=== PATIENT | male | born 1955 | race Caucasian/White ===

== ENCOUNTER 2017-11-05 05:25 | Inpatient (IN) | payer BC, OTHER ==
[2017-10-16 12:05] VITALS: BMI 43.0
--- NOTE | 2017-10-16 12:32 | PAT Medication Instructions ---
Service Date Oct 16, 2017. Current Home Medication List Acetaminophen W/ Codeine (Tylenol W/Codeine #3), 2 TAB PO UD PRN for Pain Aspirin (Aspirin Ec), 81 MG PO QAM Cetirizine (Zyrtec), 10 MG PO QAM Cholestyramine (Cholestyramine Light), 1 DOSE PO TID Finasteride (Proscar), 5 MG PO HS Furosemide (Lasix), 20 MG PO QAM Ibuprofen (Motrin), 2 TAB PO UD PRN for Pain Losartan Potassium (Losartan Potassium), 100 MG PO QAM Metoprolol Succ (Toprol Xl) (Toprol-Xl), 50 MG PO QAM Multivitamin (Multivitamin), 1 TAB PO QAM Nitroglycerin (Nitrostat), 0.4 MG UT PRN Omeprazole (Prilosec), 20 MG PO QAM Pyridoxine (Vitamin B6), 200 MG PO QAM Ranitidine (Zantac), 300 MG PO HS Rosuvastatin Calcium (Crestor), 40 MG PO HS Saw [place]-Zinc (Gnp [place] Extract), 1 CAP PO QAM Tamsulosin HCl (Tamsulosin HCl), 1 CAP PO HS [Tonja's Leg Cramps ], Unknown Dose PO HS Medication Instructions For Your Scheduled Surgery - Hold the following medications 2 weeks prior to surgery: [Tonja's Leg Cramps ], Unknown Dose PO HS [place]-Zinc (Gnp [place] Extract), 1 CAP PO QAM - Check with surgeon for instructions: Ibuprofen (Motrin), 2 TAB PO UD PRN for Pain - Hold the following medications 24 hours prior to surgery: Cholestyramine (Cholestyramine Light), 1 DOSE PO TID - Hold the following medications the morning of surgery: Cetirizine (Zyrtec), 10 MG PO QAM Furosemide (Lasix), 20 MG PO QAM Losartan Potassium (Losartan Potassium), 100 MG PO QAM Multivitamin (Multivitamin), 1 TAB PO QAM Pyridoxine (Vitamin B6), 200 MG PO QAM - Take the following medications the morning of surgery with a sip of water: Nitroglycerin (Nitrostat), 0.4 MG UT PRN (if needed) Omeprazole (Prilosec), 20 MG PO QAM Metoprolol Succ (Toprol Xl) (Toprol-Xl), 50 MG PO QAM Aspirin (Aspirin Ec), 81 MG PO QAM Acetaminophen W/ Codeine (Tylenol W/Codeine #3), 2 TAB PO UD PRN for Pain (okay to take up to 4 hours prior to surgery if needed) - Take the following medications as scheduled the night before surgery: Acetaminophen W/ Codeine (Tylenol W/Codeine #3), 2 TAB PO UD PRN for Pain (if needed) Tamsulosin HCl (Tamsulosin HCl), 1 CAP PO HS Ranitidine (Zantac), 300 MG PO HS Nitroglycerin (Nitrostat), 0.4 MG UT PRN (if needed) Rosuvastatin Calcium (Crestor), 40 MG PO HS Finasteride (Proscar), 5 MG PO HS If you have any questions please call us at [phone] or [phone] or [phone]
--- NOTE | 2017-10-16 13:43 | DIAGNOSTIC IMAGING REPORT ---
CHEST 2 VIEWS ROUTINE CLINICAL HISTORY: Preoperative evaluation. COMPARISON STUDY: Chest radiograph October 20, 2013. FINDINGS: Lung volumes are normal. There is no pneumothorax or pleural effusion. Pulmonary vascularity is normal. There is no consolidation. There is mild cardiomegaly. Postoperative findings within the left shoulder are noted. IMPRESSION: 1. No acute cardiopulmonary findings. 2. Mild cardiomegaly. Electronically signed by: Dion Blancas M.D. 10/16/2017 1:42 PM Dictated Date/Time: 10/16/2017 1:40 PM
[2017-10-16 14:46] LABS: BASO % 0.5 %; BASO ABS # 0.02 K/uL (0-0.2); EOS % 1.4 %; EOS ABS # 0.06 K/uL (0-0.5); HEMATOCRIT 39.1 % (42-52); HEMOGLOBIN 13.4 g/dL (14.0-18.0); IG# 0.01 K/uL (0.00-0.02); LYMPH % 39.1 %; LYMPH ABS # 1.69 K/uL (1.2-3.4); MEAN CELL VOLUME 89.3 fL (80-100); MEAN CORPUSCULAR HEMOGLOBIN 30.6 pg (25-34); MEAN CORPUSCULAR HGB CONC 34.3 g/dl (32-36); MEAN PLATELET VOLUME 10.4 fL (7.4-10.4); MONO % 11.6 %; NEUT % 47.2 %; NEUT ABS # 2.04 K/uL (1.4-6.5); PLATELET COUNT 160 K/uL (130-400); RED CELL DISTRIBUTION WIDTH CV 13.6 % (11.5-14.5); RED CELL DISTRIBUTION WIDTH SD 44.6 fL (36.4-46.3); WHITE BLOOD COUNT 4.32 K/uL (4.8-10.8)
[2017-10-16 16:11] LABS: CALCIUM 9.4 mg/dl (8.5-10.1); CREATININE 1.18 mg/dl (0.60-1.40); POTASSIUM 4.9 mmol/L (3.5-5.1)
[~2017-11-05] VITALS: Ht 172.7 cm; Wt 129.4 kg
[2017-11-05] VITALS (8 sets, daily range): BP systolic 99–134; BP diastolic 63–84; PULSE 56–74; TEMP 36.4–37.2; O2SAT 61–99; Ht 172.7 cm; Wt 129.4 kg
[~2017-11-05 05:25] MED LIST: ACET-1101 PO; ASPI81TA28 PO; CETI10TA84 PO; CZR50 PO; FINA5TAB PO; FLM4 PO; FURO-85 PO; HYLAND'S LEG CRAMPS PO; IBUP600T44 PO; METO50TA8 PO; MULT-506 PO; NTRGSL/4 UT; PRLSR20 PO; PYRI100T4 PO; QSTP PO; RANI300T2 PO; ROSU40TA PO; [UNRECOGNIZED DRUG - CODE] PO
[2017-11-05] MEDS ORDERED: CeleBREX 200 MG CAP PO SCH (06:00)
[2017-11-05] MEDS ORDERED: LACTATED RINGER'S 1000ML 1,000 ML IV SCH (06:00)
[2017-11-05] MEDS ORDERED: CEFAZOLIN 2000MG IV PUSH 15 ML IV SCH (06:00)
[2017-11-05] MEDS ORDERED: GABAPENTIN 600 MG PO SCH (06:00)
[2017-11-05] MEDS ORDERED: ACETAMINOPHEN 500 MG TAB PO SCH (06:00)
[2017-11-05] MEDS ORDERED: MIDAZOLAM HCL 1 MG/ML 2ML VIAL ONE (06:46)
[2017-11-05] MEDS ORDERED: FENTANYL CITRATE INJ 50 MCG/1 ML 2 ML VIAL ONE ×6 (06:46→11:25)
[2017-11-05] MEDS ORDERED: BACITRACIN 50000 UNIT VIAL ONE (06:59)
[2017-11-05] MEDS ORDERED: BUPIVACAINE/EPINEPHRINE 0.5% MPF 1:200,000 30 ML VIAL ONE (06:59)
--- NOTE | 2017-11-05 07:32 | History & Physical Bridge Note ---
H&P Re-Evaluation Bridge Note: I have examined the patient, reviewed the History & Physical and in the interval since the performance of the History & Physical I have noted the following changes of clinical significance: No changes noted
--- NOTE | 2017-11-05 07:33 | History and Physical ---
History & Physical Date Nov 05, 2017. Chief Complaint Back and leg pain History of Present Illness The patient is a 62 year old male with complaints of back and leg pain Additional History Hepatic Disease: No Endocrine Disorder: No Kidney Disease: No Hypertension: Yes Heart Disease: No Bleeding Tendencies: No Infectious Diseases: No Allergies Coded Allergies: Adhesives (Verified Allergy, Intermediate, red skin;pulls skin off, ) NO KNOWN DRUG ALLERGIES (Verified Allergy, Unknown, nkda, 11/05/17) Home Medications Scheduled Aspirin (Aspirin Ec), 81 MG PO QAM Cetirizine (Zyrtec), 10 MG PO QAM Cholestyramine (Cholestyramine Light), 1 DOSE PO TID Finasteride (Proscar), 5 MG PO HS Furosemide (Lasix), 20 MG PO QAM Losartan Potassium (Losartan Potassium), 100 MG PO QAM Metoprolol Succ (Toprol Xl) (Toprol-Xl), 50 MG PO QAM Multivitamin (Multivitamin), 1 TAB PO QAM Nitroglycerin (Nitrostat), 0.4 MG UT PRN Omeprazole (Prilosec), 20 MG PO QAM Pyridoxine (Vitamin B6), 200 MG PO QAM Ranitidine (Zantac), 300 MG PO HS Rosuvastatin Calcium (Crestor), 40 MG PO HS Saw [place]-Zinc (Gnp Saw [place] Extract), 1 CAP PO QAM Tamsulosin HCl (Tamsulosin HCl), 1 CAP PO HS [Tonja's Leg Cramps ], Unknown Dose PO HS Scheduled PRN Acetaminophen W/ Codeine (Tylenol W/Codeine #3), 2 TAB PO UD PRN for Pain Ibuprofen (Motrin), 2 TAB PO UD PRN for Pain Physical Examination Skin: warm/dry, no rash Eyes: normal inspection, EOMI, sclerae normal ENT: normal ENT inspection, pharynx normal Head: normocephalic, atraumatic Neck: supple, no adenopathy, trachea midline Respiratory/Chest: lungs clear, normal breath sounds, no respiratory distress Cardiovascular: regular rate, rhythm, no edema, no murmur Abdomen / GI: normal bowel sounds, non tender Back: normal inspection Extremities: normal inspection, normal range of motion Neurologic/Psych: no motor/sensory deficits, alert, normal reflexes, oriented x 3 Diagnosis Lumbar spinal stenosis Plan of Treatment L3-S1 hardware removal L2-3 decompression L2-L4 fusion
[2017-11-05 07:34] LABS: CALCIUM 8.6 mg/dl (8.5-10.1); CREATININE 1.29 mg/dl (0.60-1.40); POTASSIUM 4.2 mmol/L (3.5-5.1)
[2017-11-05] MEDS ORDERED: FENTANYL CITRATE INJ 50 MCG/1 ML 2 ML VIAL IV PRN (07:45)
[2017-11-05] MEDS ORDERED: EpHEDrine SULFATE INJ 50 MG/ML AMP IV PRN (07:45)
[2017-11-05] MEDS ORDERED: ATROPINE SULFATE 0.1 MG/ML 5ML SYR IV PRN (07:45)
[2017-11-05] MEDS ORDERED: HYDROmorphone INJ 1 MG/ML SYR IV PRN (07:45)
[2017-11-05] MEDS ORDERED: HYDROmorphone INJ 2 MG/ML SYR/VIAL ONE ×3 (08:20→11:29)
[2017-11-05] MEDS ORDERED: CEFAZOLIN SOD 1 GM VIAL ONE (08:39)
[2017-11-05] MEDS ORDERED: PROPOFOL IV EMULSION 10 MG/ML 20 ML VIAL IV ONE (08:39)
[2017-11-05] MEDS ORDERED: DEXAMETHASONE SOD INJ 4 MG/ML VIAL ONE (08:39)
[2017-11-05] MEDS ORDERED: EpHEDrine SULFATE 50MG/5ML SYR ONE (08:39)
[2017-11-05] MEDS ORDERED: LIDOCAINE HCL 2% 2 ML VIAL (20MG/ML) ONE (08:39)
[2017-11-05] MEDS ORDERED: ROCURONIUM BROMIDE 10 MG/ML 5 ML VIAL IV ONE ×2 (08:39→11:32)
[2017-11-05] MEDS ORDERED: VOLUVEN IN NSS ONE (09:25)
[2017-11-05] MEDS ORDERED: ALBUMIN HUMAN 5% 12.5 GM/250 ML VIAL IV ONE ×2 (09:25→10:24)
[2017-11-05] MEDS ORDERED: FLOSEAL HEMOSTATIC MATRIX 10ML TOP ONE (11:03)
[2017-11-05 11:07] LABS: HEMATOCRIT 31.2 % (42-52); HEMOGLOBIN 10.7 g/dL (14.0-18.0)
--- NOTE | 2017-11-05 11:28 | DIAGNOSTIC IMAGING REPORT ---
LUMBAR SPINE 2 OR 3 VIEW CLINICAL HISTORY: L3-S1 REMOVE HARDWARE/L2-4 DECOMPRESSION/FUSION TECHNIQUE: Image intensifier COMPARISON STUDY: None FINDINGS: Image intensifier was utilized for hardware removal from L3 through S1 as well as a new decompression fusion from L2 through L4. Several disc spaces are present. IMPRESSION: Image intensifier utilized for hardware removal as well as laminectomy and decompression The above report was generated using voice recognition software. It may contain grammatical, syntax or spelling errors. Electronically signed by: Carl Xiao M.D. 11/05/2017 11:27 AM Dictated Date/Time: 11/05/2017 11:26 AM
[2017-11-05] MEDS ORDERED: ONDANSETRON INJ 2 MG/ML 2 ML VIAL ONE (11:32)
[2017-11-05] MEDS ORDERED: NEOSTIGMINE METHYLSULFATE 1 MG/ML 10ML VIAL ONE (11:32)
[2017-11-05] MEDS ORDERED: GLYCOPYRROLATE INJ 0.2 MG/ML VIAL ONE (11:32)
--- NOTE | 2017-11-05 11:42 | [facility] Operative Report ---
Operative Report Operative Date Nov 05, 2017. Pre-Operative Diagnosis Lumbar spinal stenosis with neurogenic claudication Post-Operative Diagnosis same as pre-operative Procedure(s) Performed 1. Removal of instrumentation L3-S1. 2 expiration of fusion L3-S1. #3 lumbar decompression bilateral medial facetectomies foraminotomies L2-3. #4 posterior spinal fusion L2-3. #5 placement of posterior instrumentation L2-3. #6 interbody fusion L2-3. #7 placement peek cage 11 x 26 mm L2-3. #8 placement of locally harvested morselized autograft L2-3. #9 placement InFUSE collagen sponge combined master graft in the posterior lateral gutters and ostial amp in the interbody space. Surgeon Dr. Erickson Narvaez Marker Assembler Surgeon(s) none Estimated Blood Loss 1400mL Findings Severe spinal stenosis Specimens A. Explanted lumbar and sacral hardware Anesthesia Type General Description of Procedure Patient was met with preoperatively case discussed all questions addressed. After informed consent obtained patient was taken to the operative suite underwent intubation and placed in the prone position on the Juan table on top of the Héctor frame. All bony prominences were well-padded eyes inspected to ensure no external pressure placed upon. This point the lumbar spine was prepped and draped in normal sterile fashion. Sharp dissection with the assistance of Bovie cautery was performed down to and exposing the lamina and transverse processes of L2 and instrumentation at L3-L4 L5-S1 levels bilaterally. Then proceeded remove the hardware bilaterally. Is unable to remove the left S1 pedicle screw elected to keep it in place. I did explore the fusion mass noting it to be intact. Then performed a complete laminectomy of L2 addressing severe lateral recess and foraminal stenosis. Pedicle screws were then placed in L2 and L3 bilaterally with the assistance of fluoroscopy and appropriate size joaquín placed. Through a transforaminal approach on the left complete discectomy of L2-3 was performed endplates carotid to subcortical bleeding bone and a 11 x 26 mm peek cage filled with ostium bone graft tapped in position. Rods were then compressed locked in final position bilaterally. Transverse processes of L2 and L3 burred to subcortical bleeding bone. Infuse collagen sponge mesh graft and locally harvested morselized autograft Was placed in the posterior gutters. A 15 round WALTER drain inserted. Incision was then closed with 1 Vicryl fascia 2-0 Vicryl subcutaneously 4 Monocryl for fashion closure Steri-Strips sterile dressings placed patient will continue PACU stable condition. I attest to the content of the Intraoperative Record and any orders documented therein. Any exceptions are noted below.
[2017-11-05] MEDS ORDERED: SODIUM CHLORIDE 0.9% 1000ML 1,000 ML IV SCH ×2 (11:43→11:52)
[2017-11-05] MEDS ORDERED: BISACODYL 10 MG SUPP PR PRN (11:45)
[2017-11-05] MEDS ORDERED: LORAZEPAM INJ 0.5 MG in SYRINGE 0.75 ML IV PRN (11:45)
[2017-11-05] MEDS ORDERED: MAGNESIUM HYDROXIDE SUSP 30 ML UDC PO PRN (11:45)
[2017-11-05] MEDS ORDERED: PROMETHAZINE HCL INJ 12.5 MG in SODIUM CHLORIDE 0.9% 50ML 50 ML IV PRN (11:45)
[2017-11-05] MEDS ORDERED: NALOXONE HCL 0.4 MG/1 ML VIAL/CARP IV PRN ×3 (11:45→12:00)
[2017-11-05] MEDS ORDERED: ONDANSETRON INJ 2 MG/ML 2 ML VIAL IV PRN (11:45)
[2017-11-05] MEDS ORDERED: ACETAMINOPHEN 500 MG TAB PO PRN (11:45)
[2017-11-05] MEDS ORDERED: LORAZEPAM 0.5 MG TAB PO PRN (11:45)
[2017-11-05] MEDS ORDERED: CEFAZOLIN IV 3,000 MG in DEXTROSE 5% 50ML 50 ML IV SCH (11:45)
[2017-11-05] MEDS ORDERED: hydrOXYzine HCL 25 MG TAB PO PRN (11:45)
[2017-11-05] MEDS ORDERED: ACETAMINOPHEN IV 100 ML IV PRN (11:45)
[2017-11-05] MEDS ORDERED: DO NOT ADMINISTER FLU VACCINE PRN (11:45)
[2017-11-05] MEDS ORDERED: DO NOT ADMINISTER PNEUMOCOCCAL VACCINE PRN (11:45)
[2017-11-05] MEDS ORDERED: ALUMINUM/MAGNESIUM SUSP 30 ML UDC PO PRN (11:45)
[2017-11-05] MEDS ORDERED: FAMOTIDINE 20 MG TAB PO PRN (11:45)
[2017-11-05] MEDS ORDERED: NITROGLYCERIN 0.4 MG SL PER TAB CHARGE UT PRN (11:45)
[2017-11-05] MEDS ORDERED: SOD PHOSPHATE/SOD BIPHOSPHATE ENEMA 132 ML BTL PR PRN (11:45)
[2017-11-05] MEDS ORDERED: METOCLOPRAMIDE HCL INJ 5 MG/ML 2 ML VIAL IV PRN (11:45)
[2017-11-05] MEDS ORDERED: HYDROmorphone HCL 0.5MG/ML 50 ML CASSETTE ONE (11:56)
[2017-11-05] MEDS ORDERED: HYDROmorphone HCL 0.5MG/ML 50 ML CASSETTE IV PRN (12:00)
--- NOTE | 2017-11-05 12:16 | Anesthesiology Progress Note ---
Anesthesia Post Op Note Date & Time Nov 05, 2017 at 12:15 Vital Signs Pain Intensity: 0 Vital Signs Past 12 Hours Date Time Temp Pulse Resp B/P (MAP) Pulse Ox O2 Delivery O2 Flow Rate FiO2 11/05/17 12:05 61 16 113/64 94 Oxymask 3 11/05/17 11:55 82 16 134/58 95 Oxymask 5 11/05/17 11:47 36.2 74 16 170/65 96 Oxymask 10 11/05/17 05:50 37.2 56 20 134/81 97 Room Air Notes Mental Status: alert / awake / arousable, participated in evaluation Pt Amnestic to Procedure: Yes Nausea / Vomiting: adequately controlled Pain: adequately controlled Airway Patency, RR, SpO2: stable & adequate BP & HR: stable & adequate Hydration State: stable & adequate Anesthetic Complications: no major complications apparent
[2017-11-05] MEDS: SODIUM CHLORIDE 0.9% 1000ML 1,000 ML IV SCH ×2 (14:12→20:59)
[2017-11-05] MEDS: HYDROmorphone HCL 0.5MG/ML 50 ML CASSETTE IV PRN ×2 (14:57→23:03)
[2017-11-05] MEDS: CEFAZOLIN IV 3,000 MG in SYRINGE 0 ML IV SCH ×2 (15:43→23:39)
[2017-11-05] MEDS ORDERED: NURSING VERBAL MED ORDER ONE (16:00)
[2017-11-05] MEDS: FINASTERIDE 5 MG TAB PO SCH (20:52)
[2017-11-05] MEDS: ROSUVASTATIN CALCIUM 20 MG TAB PO SCH (20:53)
[2017-11-05] MEDS: RANITIDINE HCL 150 MG TAB PO SCH (20:53)
[2017-11-05] MEDS: DOCUSATE SODIUM/SENNA 50/8.6MG TAB PO SCH (20:53)
[2017-11-05] MEDS: TAMSULOSIN HCL 0.4 MG CAP PO SCH (20:53)
[2017-11-05] MEDS: CHOLESTYRAMINE LIGHT 4 GM PKT PO SCH (22:15)
[2017-11-06] VITALS (7 sets, daily range): BP systolic 104–136; BP diastolic 53–80; PULSE 54–80; TEMP 36.5–36.9; O2SAT 92–99
[2017-11-06] MEDS: SODIUM CHLORIDE 0.9% 1000ML 1,000 ML IV SCH (02:59)
[2017-11-06 05:46] LABS: HEMOGLOBIN 9.5 g/dL (14.0-18.0); IG# 0.03 K/uL (0.00-0.02); LYMPH % 10.7 %; LYMPH ABS # 1.05 K/uL (1.2-3.4); MEAN CELL VOLUME 89.5 fL (80-100); MEAN CORPUSCULAR HEMOGLOBIN 30.4 pg (25-34); MEAN CORPUSCULAR HGB CONC 33.9 g/dl (32-36); MEAN PLATELET VOLUME 10.4 fL (7.4-10.4); MONO % 7.3 %; MONO ABS # 0.72 K/uL (0.11-0.59); NEUT % 81.7 %; NEUT ABS # 8.04 K/uL (1.4-6.5); PLATELET COUNT 132 K/uL (130-400); RED CELL DISTRIBUTION WIDTH CV 13.3 % (11.5-14.5); RED CELL DISTRIBUTION WIDTH SD 43.5 fL (36.4-46.3); WHITE BLOOD COUNT 9.84 K/uL (4.8-10.8)
[2017-11-06] MEDS ORDERED: DC PCA ONE (06:00)
[2017-11-06] MEDS ORDERED: HYDROmorphone INJ 0.5 MG/0.5 ML SYR IV PRN (06:00)
[2017-11-06 06:33] LABS: CALCIUM 7.5 mg/dl (8.5-10.1); CREATININE 1.15 mg/dl (0.60-1.40)
--- NOTE | 2017-11-06 07:53 | Medical Consult ---
Consultation Date of Consultation: Nov 06, 2017. Attending Physician: Erickson Narvaez D.O. Reason for Consultation: medical management . History of Present Illness 62-year-old male from [place]. History of ischemic heart disease and other problems noted below. Lumbar decompression/fusion performed yesterday by Dr. Narvaez. Doing well postoperatively. No chest pain. No cough or dyspnea. No nausea or vomiting. Has Gonsales catheter. Postop pain well-controlled. . Past Medical/Surgical History Chronic and Resolved Medical Problems: (1) BPH (benign prostatic hyperplasia) Status: Chronic (2) Coronary artery disease Status: Chronic (3) Dyslipidemia Status: Chronic (4) GERD (gastroesophageal reflux disease) Status: Chronic (5) History of subdural hematoma Status: Chronic (6) Lumbar stenosis with neurogenic claudication Status: Chronic Surgical Problems: (1) Status post coronary artery stent placement Status: Chronic . Family History Mother-Alzheimer's disease. Father-coronary artery disease. . Social History Smoking Status: Former Smoker Alcohol Use: occasionally Allergies Coded Allergies: Adhesives (Verified Allergy, Intermediate, red skin;pulls skin off, ) NO KNOWN DRUG ALLERGIES (Verified Allergy, Unknown, nkda, 11/05/17) Home Medications Reported Home Medications Medications Dose Route/Sig Max Daily Dose Days Date Category Dose Instructions [Tonja's Leg Cramps ] Unknown Strength Unknown Dose PO HS 10/16/17 Reported Multivitamin (Multivitamins) Tab 1 Tab PO QAM 10/16/17 Reported Proscar (Finasteride) 5 Mg Tab 5 Mg PO HS 10/16/17 Reported Cholestyramine Light (Cholestyramine) 4 Gm Pack 1 Dose PO TID 10/16/17 Reported PT MIXES WITH ORANGE JUICE PT REPORTS INSTRUCTIONS REGARDING THIS MED STATE: TAKE OTHER MEDICATIONS 1 HOUR PRIOR TO TAKING THIS MED OR 4 HOURS AFTER TAKING THIS MED Zyrtec (Cetirizine HCl) 10 Mg Tab 10 Mg PO QAM 10/16/17 Reported Lasix (Furosemide) 20 Mg Tab 20 Mg PO QAM 10/16/17 Reported Nitrostat (Nitroglycerin) 0.4 Mg Tab 0.4 Mg UT PRN 10/16/17 Reported Losartan Potassium 50 Mg Tab 100 Mg PO QAM 10/16/17 Reported Toprol-Xl (Metoprolol Succinate) 50 Mg Tabcr 50 Mg PO QAM 10/16/17 Reported Crestor (Rosuvastatin Calcium) 40 Mg Tab 40 Mg PO HS 10/16/17 Reported Tamsulosin HCl 0.4 Mg Cap 1 Cap PO HS 10/16/17 Reported Aspirin Ec (Aspirin) 81 Mg Tab 81 Mg PO QAM 10/16/17 Reported PER CARDIO...PT TO CONTINUE BABY ASPIRIN Motrin (Ibuprofen) 600 Mg Tab 2 Tab PO UD PRN 10/16/17 Reported PT REPORTS USUALLY TAKES 1 TAB IN AM NOT 2 Tylenol W/Codeine #3 (Acetaminophen W/ Codeine) 1 Tab Tab 2 Tab PO UD PRN 10/16/17 Reported Vitamin B6 (Pyridoxine HCl) 100 Mg Tab 200 Mg PO QAM 10/20/13 Reported THIS MED IS A TIME RELEASE MED PER PT Prilosec (Omeprazole) 20 Mg Capcr 20 Mg PO QAM 10/20/13 Reported Zantac (Ranitidine HCl) 300 Mg Tab 300 Mg PO HS 10/20/13 Reported Gnp Saw [place] Extract (Saw [place]-Zinc) 1 Cap Cap 1 Cap PO QAM 10/20/13 Reported Current Inpatient Medications Current Inpatient Medications Medications (Trade) Dose Ordered Sig/Mary Route Start Time Stop Time Status Last Admin Dose Admin Promethazine HCl 12.5 mg/Sodium Chloride 50.5 ml @ 202 mls/hr Q6H PRN IV 11/05/17 11:45 12/05/17 11:44 Ondansetron HCl (Zofran Inj) 4 mg Q6H PRN IV 11/05/17 11:45 12/05/17 11:44 Metoclopramide HCl (Reglan Inj) 10 mg Q6H PRN IV 11/05/17 11:45 12/05/17 11:44 Lorazepam (Ativan Tab) 0.5 mg Q8H PRN PO 11/05/17 11:45 12/05/17 11:44 Lorazepam 0.5 mg/ Syringe 1 ml @ 1 mls/min Q8H PRN IV 11/05/17 11:45 12/05/17 11:44 Pneumococcal Polysaccharide Vaccine 1 ea PRN PRN N/A 11/05/17 11:45 12/05/17 11:44 Influenza Virus Vacc Triv Types A&B 1 ea PRN PRN N/A 11/05/17 11:45 12/05/17 11:44 Polyethylene (Miralax Powder Packet) 17 gm Q6 PO 11/07/17 06:00 12/07/17 05:59 Bisacodyl (Dulcolax Supp) 10 mg DAILY PRN DE 11/05/17 11:45 12/05/17 11:44 Magnesium Hydroxide (Milk Of Magnesia Susp) 30 ml DAILY PRN PO 11/05/17 11:45 12/05/17 11:44 Hydromorphone HCl (Dilaudid Inj) 0.5-1mg prn moder... Q3H PRN IV 11/06/17 06:00 11/20/17 05:59 Oxycodone HCl (Roxicodone Immediate Rel Tab) 5-10mg prn moderate to sev... Q4H PRN PO 11/06/17 06:00 11/20/17 05:59 Sodium Chloride 1,000 ml @ 150 mls/hr Q6H40M IV 11/05/17 14:00 12/05/17 13:59 11/06/17 02:59 150 MLS/HR Acetaminophen (Tylenol Tab) 1,000 mg Q8H PRN PO 11/05/17 11:45 12/05/17 11:44 Acetaminophen 100 ml @ 400 mls/hr Q8H PRN IV 11/05/17 11:45 12/05/17 11:44 Naloxone HCl (Narcan Inj) 0.1 mg Q5M PRN IV 11/05/17 11:45 12/05/17 11:44 Senna/Docusate Sodium (Senokot S Tab) 2 tab HS PO 11/05/17 21:00 12/05/17 20:59 11/05/17 20:53 2 TAB Sodium Biphosphate/ Sodium Phosphate (Fleet Enema) 132 ml ONE PRN DE 11/05/17 11:45 12/05/17 11:44 Hydroxyzine HCl (Vistaril Tab) 25 mg Q8H PRN PO 11/05/17 11:45 12/05/17 11:44 Al Hydroxide/Mg Hydroxide (Maalox Susp) 30 ml Q6H PRN PO 11/05/17 11:45 12/05/17 11:44 Famotidine (Pepcid Tab) 20 mg Q12 PRN PO 11/05/17 11:45 12/05/17 11:44 Diphenhydramine HCl (Benadryl Cap) 25 mg Q6H PRN PO 11/05/17 11:45 12/05/17 11:44 Aspirin (Ecotrin Tab) 81 mg QAM PO 11/06/17 09:00 12/06/17 08:59 Cetirizine HCl (zyrTEC TAB) 10 mg QAM PO 11/06/17 09:00 12/06/17 08:59 Finasteride (Proscar Tab) 5 mg HS PO 11/05/17 21:00 12/05/17 20:59 11/05/17 20:52 5 MG Furosemide (Lasix Tab) 20 mg QAM PO 11/06/17 09:00 12/06/17 08:59 Losartan Potassium (coZAAR TAB) 100 mg QAM PO 11/06/17 09:00 12/06/17 08:59 Metoprolol Succinate (Toprol Xl Tab) 50 mg QAM PO 11/06/17 09:00 12/06/17 08:59 Nitroglycerin (Nitrostat Tab) 0.4 mg PRN PRN UT 11/05/17 11:45 12/05/17 11:44 Rosuvastatin Calcium (Crestor Tab) 40 mg HS PO 11/05/17 21:00 12/05/17 20:59 11/05/17 20:53 40 MG Tamsulosin HCl (Flomax Cap) 0.4 mg HS PO 11/05/17 21:00 12/05/17 20:59 11/05/17 20:53 0.4 MG Pantoprazole Sodium (Protonix Tab) 40 mg QAM PO 11/06/17 09:00 12/06/17 08:59 Ranitidine HCl (zANTac TAB) 300 mg HS PO 11/05/17 21:00 12/05/17 20:59 11/05/17 20:53 300 MG Cholestyramine Resin (Questran Powder Light) 4 gm TID@1000,1500,2200 PO 11/05/17 22:00 12/05/17 21:59 11/05/17 22:15 4 GM Review of Systems Constitutional: No fever, No weight loss Respiratory: No cough, No shortness of breath Cardiovascular: No chest pain, No edema Abdomen: No nausea, No vomiting, No constipation, No GI bleeding Musculoskeletal: + joint pain (Back pain) Genitourinary - Male: No hematuria, No dysuria Neurologic: + memory loss (mild, since SDH) Hematologic / Lymphatic: No abnormal bleeding/bruising Physical Exam Date Time Temp Pulse Resp B/P (MAP) Pulse Ox O2 Delivery O2 Flow Rate FiO2 11/06/17 02:53 36.8 80 15 136/68 (90) 93 Room Air 11/06/17 00:00 Room Air 11/05/17 23:53 36.7 64 16 99/63 (75) 93 Room Air 11/05/17 19:45 37.0 69 16 115/65 (82) 98 Nasal Cannula 3.0 11/05/17 15:36 36.4 67 16 123/73 (90) 98 11/05/17 15:30 Nasal Cannula 3.0 11/05/17 14:40 72 16 130/84 (99) 95 2.0 11/05/17 13:42 74 16 104/66 (79) 95 3.0 11/05/17 13:12 57 16 111/68 (82) 99 3.0 11/05/17 13:07 96 Nasal Cannula 3.0 11/05/17 12:45 36.5 61 16 115/74 (88) 61 Nasal Cannula 3.0 11/05/17 12:45 Nasal Cannula 3.0 11/05/17 12:25 36.7 71 17 135/72 97 Nasal Cannula 3 11/05/17 12:15 73 17 125/77 97 Nasal Cannula 3 11/05/17 12:05 61 16 113/64 94 Oxymask 3 11/05/17 11:55 82 16 134/58 95 Oxymask 5 11/05/17 11:47 36.2 74 16 170/65 96 Oxymask 10 CONSTITUTIONAL vital signs as noted above well-developed, well-nourished, no acute distress EYES conjunctivae clear; lids normal pupils equal and reactive to light EARS, NOSE, MOUTH AND THROAT external inspection of ears and nose unremarkable hearing grossly intact to spoken voice Edentulous oropharynx clear NECK no masses; trachea midline thyroid normal RESPIRATORY normal respiratory effort; no respiratory distress clear to auscultation CARDIOVASCULAR regular rate and rhythm II/ systolic murmur at base no gallop or rub appreciated no JVD no pretibial edema GASTROINTESTINAL normal bowel sounds, soft, nontender; no palpable masses no hepatomegaly; no splenomegaly Gonsales catheter draining clear urine. LYMPHATIC no cervical adenopathy MUSCULOSKELETAL no cyanosis; no digital clubbing no calf tenderness motor strength extremities grossly intact SCD's applied SKIN no rash warm and dry NEUROLOGIC PERRL, EOMI, no facial palsy, no dysarthria PSYCHIATRIC oriented to person, place, time mood and affect appropriate . Laboratory Results Last 24 Hours Test 11/05/17 10:55 11/06/17 05:14 11/06/17 07:01 Hemoglobin 10.7 g/dL 9.5 g/dL Hematocrit 31.2 % 28.0 % White Blood Count 9.84 K/uL Red Blood Count 3.13 M/uL Mean Corpuscular Volume 89.5 fL Mean Corpuscular Hemoglobin 30.4 pg Mean Corpuscular Hemoglobin Concent 33.9 g/dl Platelet Count 132 K/uL Mean Platelet Volume 10.4 fL Neutrophils (%) (Auto) 81.7 % Lymphocytes (%) (Auto) 10.7 % Monocytes (%) (Auto) 7.3 % Eosinophils (%) (Auto) 0.0 % Basophils (%) (Auto) 0.0 % Neutrophils # (Auto) 8.04 K/uL Lymphocytes # (Auto) 1.05 K/uL Monocytes # (Auto) 0.72 K/uL Eosinophils # (Auto) 0.00 K/uL Basophils # (Auto) 0.00 K/uL RDW Standard Deviation 43.5 fL RDW Coefficient of Variation 13.3 % Immature Granulocyte % (Auto) 0.3 % Immature Granulocyte # (Auto) 0.03 K/uL Sodium Level 139 mmol/L Potassium Level mmol/L 4.3 mmol/L Chloride Level 106 mmol/L Carbon Dioxide Level 30 mmol/L Anion Gap 2.0 mmol/L Blood Urea Nitrogen 14 mg/dl Creatinine 1.15 mg/dl Est Creatinine Clear Calc Drug Dose 89.7 ml/min Estimated GFR () 79.7 Estimated GFR (Non- 68.8 BUN/Creatinine Ratio 11.7 Random Glucose 152 mg/dl Calcium Level 7.5 mg/dl Assessment & Plan S/P LUMBAR DECOMPRESSION AND FUSION Doing well postoperatively. CORONARY ARTERY DISEASE No anginal symptoms. Continue aspirin, metoprolol, statin. GERD Continue PPI. BPH Watch for urinary retention postoperatively. Continue tamsulosin. DYSLIPIDEMIA Continue Crestor. VTE PROPHYLAXIS Per Orthopedics protocol. Thank you for this consultation. We will follow the patient with you during their hospital stay. You can reach a member of the [facility] Medicine Team 04/02 via pager @ [phone]. You can reach me via cell @ [phone]. .
[2017-11-06] MEDS: ASPIRIN 81 MG ECTAB PO SCH (08:36)
[2017-11-06] MEDS: OXYCODONE HCL IR 5 MG TAB (IMMEDIATE RELEASE) PO PRN ×3 (08:36→19:54)
[2017-11-06] MEDS: PANTOprazole SOD 40 MG TAB PO SCH (08:36)
[2017-11-06] MEDS: METOPROLOL SUCC 50MG EXT REL TAB PO SCH (08:37)
[2017-11-06] MEDS: LOSARTAN POTASSIUM 50 MG TAB PO SCH (08:37)
[2017-11-06] MEDS: FUROSEMIDE 20 MG TAB PO SCH (08:37)
[2017-11-06] MEDS: CETIRIZINE HCL 10 MG TAB PO SCH (08:37)
[2017-11-06] MEDS: CHOLESTYRAMINE LIGHT 4 GM PKT PO SCH ×3 (09:43→22:13)
[2017-11-06] MEDS ORDERED: NURSING VERBAL MED ORDER ONE (09:45)
[2017-11-06] MEDS: KETOROLAC TROMETHAMINE 30 MG/ML VIAL IV PRN (11:57)
--- NOTE | 2017-11-06 13:21 | Progress Note ---
Progress Note Date of Service Nov 06, 2017. Progress Note Patient's back pain is controlled leg pain markedly improved vital signs stable. On exam he is in the chair at bedside is good strength testing appears comfortable. Assessment status post lumbar decompression fusion per plan at this time will continue physical therapy advance his bowel regimen anticipate home the next few days.
[2017-11-06] MEDS: TAMSULOSIN HCL 0.4 MG CAP PO SCH (20:51)
[2017-11-06] MEDS: FINASTERIDE 5 MG TAB PO SCH (20:51)
[2017-11-06] MEDS: ROSUVASTATIN CALCIUM 20 MG TAB PO SCH (20:51)
[2017-11-06] MEDS: RANITIDINE HCL 150 MG TAB PO SCH (20:52)
[2017-11-06] MEDS: DOCUSATE SODIUM/SENNA 50/8.6MG TAB PO SCH (20:52)
[2017-11-07] MEDS: OXYCODONE HCL IR 5 MG TAB (IMMEDIATE RELEASE) PO PRN ×3 (02:25→17:21)
[2017-11-07] MEDS: POLYETHYLENE (MIRALAX) 17 GM PACK PO SCH ×4 (05:34→23:01)
[2017-11-07] MEDS: KETOROLAC TROMETHAMINE 30 MG/ML VIAL IV PRN ×3 (05:36→19:29)
[2017-11-07 07:20] VITALS: BP 107/62; PULSE 58; TEMP 36.7; O2SAT 92
[2017-11-07 08:50] VITALS: PULSE 60
[2017-11-07] MEDS: FUROSEMIDE 20 MG TAB PO SCH (08:56)
[2017-11-07] MEDS: CETIRIZINE HCL 10 MG TAB PO SCH (08:57)
[2017-11-07] MEDS: LOSARTAN POTASSIUM 50 MG TAB PO SCH (08:57)
[2017-11-07] MEDS: ASPIRIN 81 MG ECTAB PO SCH (08:57)
[2017-11-07] MEDS: METOPROLOL SUCC 50MG EXT REL TAB PO SCH (08:57)
[2017-11-07] MEDS: PANTOprazole SOD 40 MG TAB PO SCH (08:57)
[2017-11-07] MEDS: CHOLESTYRAMINE LIGHT 4 GM PKT PO SCH ×3 (10:21→21:39)
--- NOTE | 2017-11-07 13:45 | Progress Note ---
Progress Note Date of Service Nov 07, 2017. Progress Note Back pain is controlled leg symptoms markedly improved on exam he is in the chair at bedside is good strength testing. Assessment status post lumbar decompression fusion per plan at this time will continue physical therapy monitor his WALTER output anticipate possible home tomorrow.
[2017-11-07 15:10] VITALS: BP 153/67; PULSE 63; TEMP 36.6; O2SAT 99
[2017-11-07] MEDS: RANITIDINE HCL 150 MG TAB PO SCH (20:44)
[2017-11-07] MEDS: ROSUVASTATIN CALCIUM 20 MG TAB PO SCH (20:44)
[2017-11-07] MEDS: DOCUSATE SODIUM/SENNA 50/8.6MG TAB PO SCH (20:44)
[2017-11-07] MEDS: FINASTERIDE 5 MG TAB PO SCH (20:44)
[2017-11-07] MEDS: TAMSULOSIN HCL 0.4 MG CAP PO SCH (20:44)
--- NOTE | 2017-11-07 21:00 | Progress Note ---
Medicine Progress Note Date & Time of Visit: Nov 07, 2017 at 16: 45 . Subjective Doing well postoperatively. No chest pain. No cough or dyspnea. No nausea or vomiting. Passing flatus, but no stool. Gonsales catheter removed; voiding without difficulty. Postop pain well-controlled. Ambulated today with walker in PT. . Objective Last 8 Hrs Date Time Temp Pulse Resp B/P (MAP) Pulse Ox O2 Delivery O2 Flow Rate FiO2 11/07/17 19:30 Room Air 11/07/17 15:10 36.6 63 18 153/67 (95) 99 Room Air Physical Exam: General- no distress Lungs- clear to auscultation; no respiratory distress Cardiovascular- RRR; II/ systolic murmur at base; no gallop; no JVD; no pretibial edema Abdomen- + bowel sounds, soft, nontender Extremities- no cyanosis; no calf tenderness Neuro- alert, oriented Skin- warm & dry . Assessment & Plan S/P LUMBAR DECOMPRESSION AND FUSION Doing well postoperatively. CORONARY ARTERY DISEASE No anginal symptoms. Continue aspirin, metoprolol, losartan, rosuvastatin. GERD Continue PPI. BPH Gonsales removed. Voiding without difficulty. Continue tamsulosin. DYSLIPIDEMIA Continue Crestor. VTE PROPHYLAXIS Per Orthopedics protocol. Thank you for this consultation. We will follow the patient with you during their hospital stay. You can reach a member of the [facility] Medicine Team 04/02 via pager @ [phone]. You can reach me via cell @ [phone]. . Current Inpatient Medications: Current Inpatient Medications Medications (Trade) Dose Ordered Sig/[facility] Route Start Time Stop Time Status Last Admin Dose Admin Promethazine HCl 12.5 mg/Sodium Chloride 50.5 ml @ 202 mls/hr Q6H PRN IV 11/05/17 11:45 12/05/17 11:44 Ondansetron HCl (Zofran Inj) 4 mg Q6H PRN IV 11/05/17 11:45 12/05/17 11:44 Metoclopramide HCl (Reglan Inj) 10 mg Q6H PRN IV 11/05/17 11:45 12/05/17 11:44 Lorazepam (Ativan Tab) 0.5 mg Q8H PRN PO 11/05/17 11:45 12/05/17 11:44 Lorazepam 0.5 mg/ Syringe 1 ml @ 1 mls/min Q8H PRN IV 11/05/17 11:45 12/05/17 11:44 Pneumococcal Polysaccharide Vaccine 1 ea PRN PRN N/A 11/05/17 11:45 12/05/17 11:44 Influenza Virus Vacc Triv Types A&B 1 ea PRN PRN N/A 11/05/17 11:45 12/05/17 11:44 Polyethylene (Miralax Powder Packet) 17 gm Q6 PO 11/07/17 06:00 12/07/17 05:59 11/07/17 17:17 17 GM Bisacodyl (Dulcolax Supp) 10 mg DAILY PRN OK 11/05/17 11:45 12/05/17 11:44 Magnesium Hydroxide (Milk Of Magnesia Susp) 30 ml DAILY PRN PO 11/05/17 11:45 12/05/17 11:44 11/07/17 14:10 30 ML Hydromorphone HCl (Dilaudid Inj) 0.5-1mg prn moder... Q3H PRN IV 11/06/17 06:00 11/20/17 05:59 Oxycodone HCl (Roxicodone Immediate Rel Tab) 5-10mg prn moderate to sev... Q4H PRN PO 11/06/17 06:00 11/20/17 05:59 11/07/17 17:21 10 MG Acetaminophen (Tylenol Tab) 1,000 mg Q8H PRN PO 11/05/17 11:45 12/05/17 11:44 Acetaminophen 100 ml @ 400 mls/hr Q8H PRN IV 11/05/17 11:45 12/05/17 11:44 Naloxone HCl (Narcan Inj) 0.1 mg Q5M PRN IV 11/05/17 11:45 12/05/17 11:44 Senna/Docusate Sodium (Senokot S Tab) 2 tab HS PO 11/05/17 21:00 12/05/17 20:59 11/07/17 20:44 2 TAB Sodium Biphosphate/ Sodium Phosphate (Fleet Enema) 132 ml ONE PRN OK 11/05/17 11:45 12/05/17 11:44 Hydroxyzine HCl (Vistaril Tab) 25 mg Q8H PRN PO 11/05/17 11:45 12/05/17 11:44 Al Hydroxide/Mg Hydroxide (Maalox Susp) 30 ml Q6H PRN PO 11/05/17 11:45 12/05/17 11:44 Famotidine (Pepcid Tab) 20 mg Q12 PRN PO 11/05/17 11:45 12/05/17 11:44 Diphenhydramine HCl (Benadryl Cap) 25 mg Q6H PRN PO 11/05/17 11:45 12/05/17 11:44 Aspirin (Ecotrin Tab) 81 mg QAM PO 11/06/17 09:00 12/06/17 08:59 11/07/17 08:57 81 MG Cetirizine HCl (zyrTEC TAB) 10 mg QAM PO 11/06/17 09:00 12/06/17 08:59 11/07/17 08:57 10 MG Finasteride (Proscar Tab) 5 mg HS PO 11/05/17 21:00 12/05/17 20:59 11/07/17 20:44 5 MG Furosemide (Lasix Tab) 20 mg QAM PO 11/06/17 09:00 12/06/17 08:59 11/07/17 08:56 20 MG Losartan Potassium (coZAAR TAB) 100 mg QAM PO 11/06/17 09:00 12/06/17 08:59 11/07/17 08:57 100 MG Metoprolol Succinate (Toprol Xl Tab) 50 mg QAM PO 11/06/17 09:00 12/06/17 08:59 11/07/17 08:57 50 MG Nitroglycerin (Nitrostat Tab) 0.4 mg PRN PRN UT 11/05/17 11:45 12/05/17 11:44 Rosuvastatin Calcium (Crestor Tab) 40 mg HS PO 11/05/17 21:00 12/05/17 20:59 11/07/17 20:44 40 MG Tamsulosin HCl (Flomax Cap) 0.4 mg HS PO 11/05/17 21:00 12/05/17 20:59 11/07/17 20:44 0.4 MG Pantoprazole Sodium (Protonix Tab) 40 mg QAM PO 11/06/17 09:00 12/06/17 08:59 11/07/17 08:57 40 MG Ranitidine HCl (zANTac TAB) 300 mg HS PO 11/05/17 21:00 12/05/17 20:59 11/07/17 20:44 300 MG Cholestyramine Resin (Questran Powder Light) 4 gm TID@1000,1500,2200 PO 11/05/17 22:00 12/05/17 21:59 11/07/17 15:40 4 GM Ketorolac Tromethamine (Toradol Inj) 30 mg Q6H PRN IV 11/06/17 10:45 11/11/17 10:44 11/07/17 19:29 30 MG
[2017-11-07 23:10] VITALS: BP 137/75; PULSE 67; TEMP 36.6; O2SAT 97
[2017-11-08] MEDS: OXYCODONE HCL IR 5 MG TAB (IMMEDIATE RELEASE) PO PRN ×3 (01:19→11:50)
[2017-11-08] MEDS: POLYETHYLENE (MIRALAX) 17 GM PACK PO SCH (05:46)
[2017-11-08 07:06] VITALS: BP 130/79; PULSE 62; TEMP 37; O2SAT 97
[2017-11-08] MEDS: KETOROLAC TROMETHAMINE 30 MG/ML VIAL IV PRN (09:29)
[2017-11-08] MEDS: CETIRIZINE HCL 10 MG TAB PO SCH (09:52)
[2017-11-08] MEDS: FUROSEMIDE 20 MG TAB PO SCH (09:52)
[2017-11-08] MEDS: METOPROLOL SUCC 50MG EXT REL TAB PO SCH (09:53)
[2017-11-08] MEDS: LOSARTAN POTASSIUM 50 MG TAB PO SCH (09:53)
[2017-11-08] MEDS: PANTOprazole SOD 40 MG TAB PO SCH (09:54)
[2017-11-08] MEDS: ASPIRIN 81 MG ECTAB PO SCH (09:54)
[2017-11-08] MEDS ORDERED: RXC5 PO (10:04)
--- NOTE | 2017-11-08 10:04 | Discharge Instructions ---
Discharge Instructions Date of Service Nov 08, 2017. Admission Reason for Admission: Lumbar Spinal Stenosis Discharge Discharge Diagnosis / Problem: lumbar stenosis Discharge Goals Goal(s): Improve function Activity Recommendations Activity Limitations: per Instructions/Follow-up section . Instructions / Follow-Up Instructions / Follow-Up ACTIVITY RECOMMENDATIONS: SELF CARE INSTRUCTIONS AFTER THORACIC/LUMBAR FUSIONS 1. You may walk to your tolerance. It is good exercise for your legs and back. Expect some back and intermittent leg aches and pains. 2. You may perform "counter-top" level activities (make a sandwich, erica with a project, etc.). 3. No bending or lifting of more than 10 pounds or back twisting of any nature (roll like a log when turning in bed). 4. You may ride in a car for 20-30 minutes at a time. No driving until after your first visit with your doctor. 5. Frequent changes of position and restricting sitting to 30 minutes at a time will help limit the amount of back spasms and stiffness you may experience. 6. You may discontinue the use of ambulatory aids (cane, crutches, etc.) once your strength and confidence allow. 7. You may agricultural chemicals inspector the shower and let water strike your incision when you arrive home at least once daily. Do not take a tub bath, sit in a hot tub or go into a swimming pool until after your first recheck in the office. SPECIAL CARE INSTRUCTIONS: VERY IMPORTANT TO READ AND REVIEW A. Your surgical incision has been closed with a cosmetic suture under the skin that will dissolve in about 6 weeks. In 14 days, you can use a pair of clean scissors and cut the suture that is left outside of the skin at the ends of your incision. 1. The small skin tapes can be removed 7 days after surgery if they have not fallen off by that point. 2. You may keep the wound open to air as much as possible to promote healing after post-op day number 5 unless told otherwise by your doctor. 3. If you think the wound looks like it is becoming infected (redness or worsening drainage) and/or you are experiencing fever, chill or worsening back pain and muscle spasms, contact the office so that we may evaluate you as soon as possible. B. Complications are uncommon, but please contact us if you have any signs or symptoms of: 1. wound infection (fever higher than 102.5 degrees F, redness, separation of wound, drainage, or increasing pain from the incision) 2. blood clots in legs (pain, swelling, redness and warmth in legs) 3. urinary tract infection (fever higher than 102.5 degrees F, burning upon urination or increased frequency of urination) 4. nerve problems (inability to walk on your toes or heels, numbness, loss of bowel or bladder control) 5. any other symptoms that concern you C. Please call the office at if you have any concerns or questions about your operation or recovery. D. No smoking! Smoking drastically decreases the chance of a solid fusion. E. Do not take any anti-inflammatory medications (Indocin, Advil, Motrin, Aspirin, Naprosyn, etc.) as these may inhibit the chance of a solid fusion. Tylenol is okay to take for pain. MANAGING PAIN AFTER SPINAL SURGERY 1. Narcotic medication is intended for short-term use and will be provided for surgical pain. Surgical pain usually lasts for a period of 4-6 weeks. Narcotic medication includes Percocet, Vicodin, Darvocet, Tylenol #3 or Lortab. 2. Longer-term pain is more appropriately treated with non-narcotic medication such as Tylenol ES. 3. Muscle spasm is not appropriately treated with narcotics. Muscle relaxers such as Soma, Flexeril or Skelaxin can be used along with Tylenol ES. 4. Remember that we all live with some "aches and pains". This is not unusual or uncommon after an injury or as we get older. a. Back pain is expected and may include muscle spasms for 4 to 6 weeks after surgery. The pain should gradually improve. If the pain worsens for no apparent reason, please contact the office. b. Intermittent leg pain may also be experienced and should not be concerned about unless it worsens for no apparent reason. If so, please contact the office. 5. We will provide appropriate medication within the normal guidelines of their prescribed use. We will also be very cautious and aware of potential abuse and extended duration of patients' medication needs. a. Pain medications are for your comfort and to assist with sleep and rest so that the tissue can heal. They are not provided in order to return to normal activity and should not be used through the day. To do so or worsening pain at night can result from ongoing tissue damage and development of tolerance to the prescribed medicine. 6. Please allow 2-3 days to process refills. Prescriptions will not be mailed but must be picked up at the office. FOLLOW UP VISIT: Keep your scheduled follow-up appointment. Any questions, please call the office at . Current Hospital Diet Patient's current hospital diet: Regular Diet Discharge Diet Recommended Diet: Regular Diet Procedures Procedures Performed: 1. Removal of instrumentation L3-S1. 2 expiration of fusion L3-S1. #3 lumbar decompression bilateral medial facetectomies foraminotomies L2-3. #4 posterior spinal fusion L2-3. #5 placement of posterior instrumentation L2-3. #6 interbody fusion L2-3. #7 placement peek cage 11 x 26 mm L2-3. #8 placement of locally harvested morselized autograft L2-3. #9 placement InFUSE collagen sponge combined master graft in the posterior lateral gutters and ostial amp in the interbody space. Pending Studies Studies pending at discharge: no Medical Emergencies . Who to Call and When: Medical Emergencies: If at any time you feel your situation is an emergency, please call 911 immediately. . Non-Emergent Contact Non-Emergency issues call your: Primary Care Provider . "Provider Documentation" section prepared by Erickson Narvaez. .
[2017-11-08 12:14] VITALS: BP 130/79; PULSE 62; TEMP 37; O2SAT 97
--- NOTE | 2017-11-08 14:58 | Discharge Summary ---
Orthopedic Discharge Summary Admission Date/Reason Nov 05, 2017 at 07:30 Lumbar Spinal Stenosis. Discharge Date/Disposition Nov 08, 2017 Home Diagnosis Principal Diagnosis: Lumbar spinal stenosis Admission Physical Exam As per Admitting History & Physical. Hospital Course Patient underwent lumbar decompression fusion tolerated as well as taken to the orthopedic floor postoperatively. Postop day #1 she was up and ambulatory progress through postop day #2. Subsequently postop day #3 he was discharged home. Discharge orders and instructions can be found in the chart for further review. Discharge Instructions Please refer to the electronic Patient Visit Report (Discharge Instructions) for additional information.
== END 2017-11-08 13:11 | disposition home or self-care (01) | DRG 454 ==
LOC: C.ACU 05:25 → C.3E 07:30 → ENRESERV 12:12
PROVIDERS: ADMIT Orthopaedic Surgery Orthopaedic Surgery of the Spine; ATTEND Orthopaedic Surgery Orthopaedic Surgery of the Spine
PROC: 0ST20ZZ Resection of Lumbar Vertebral Disc, Open Approach (ICD-10-PCS; principal; 2017-11-05 07:30)
PROC: 0SG00AJ Fusion of Lumbar Vertebral Joint with Interbody Fusion Device, Posterior Approach, Anterior Column, Open Approach (ICD-10-PCS; principal; 2017-11-05 07:30)
PROC: 0SP004Z Removal of Internal Fixation Device from Lumbar Vertebral Joint, Open Approach (ICD-10-PCS; principal; 2017-11-05 07:30)
PROC: 0SP304Z Removal of Internal Fixation Device from Lumbosacral Joint, Open Approach (ICD-10-PCS; principal; 2017-11-05 07:30)
PROC: 0SG0071 Fusion of Lumbar Vertebral Joint with Autologous Tissue Substitute, Posterior Approach, Posterior Column, Open Approach (ICD-10-PCS; principal; 2017-11-05 07:30)
DX: M48.062 Spinal stenosis, lumbar region with neurogenic claudication (principal); Z68.41 Body mass index [BMI] 40.0-44.9, adult; I10 Essential (primary) hypertension; I25.10 Atherosclerotic heart disease of native coronary artery without angina pectoris; E78.5 Hyperlipidemia, unspecified; N40.0 Benign prostatic hyperplasia without lower urinary tract symptoms; K21.9 Gastro-esophageal reflux disease without esophagitis; E66.01 Morbid (severe) obesity due to excess calories; I25.2 Old myocardial infarction; Z87.891 Personal history of nicotine dependence; Z79.82 Long term (current) use of aspirin; Z98.890 Other specified postprocedural states; Z79.899 Other long term (current) drug therapy; Z91.048 Other nonmedicinal substance allergy status; Z82.49 Family history of ischemic heart disease and other diseases of the circulatory system; Z82.0 Family history of epilepsy and other diseases of the nervous system